=== PATIENT | male | born 1955 | race African-American/Black ===

== ENCOUNTER 2020-08-08 09:01 | Outpatient (CLI) | payer MEDICARE, MEDICAID | END 2020-08-08 09:02 | disposition home or self-care (01) | LOC: CSHWCC 09:01 | PROVIDERS: ATTEND Nurse Practitioner Family | DX: T81.89XD Other complications of procedures, not elsewhere classified, subsequent encounter (principal); E11.40 Type 2 diabetes mellitus with diabetic neuropathy, unspecified; E11.621 Type 2 diabetes mellitus with foot ulcer; E11.22 Type 2 diabetes mellitus with diabetic chronic kidney disease; I12.0 Hypertensive chronic kidney disease with stage 5 chronic kidney disease or end stage renal disease; I70.201 Unspecified atherosclerosis of native arteries of extremities, right leg; I87.2 Venous insufficiency (chronic) (peripheral); N18.6 End stage renal disease; N25.81 Secondary hyperparathyroidism of renal origin; T86.821 Skin graft (allograft) (autograft) failure; Z89.411 Acquired absence of right great toe; Z89.422 Acquired absence of other left toe(s); D63.1 Anemia in chronic kidney disease | CPT/HCPCS: 11042; 99213; G0463 ==

== ENCOUNTER 2020-08-29 09:12 | Outpatient (CLI) | payer MEDICARE, MEDICAID | END 2020-08-29 09:13 | disposition home or self-care (01) | LOC: CSHWCC 09:12 | PROVIDERS: ATTEND Nurse Practitioner Family | DX: T81.89XD Other complications of procedures, not elsewhere classified, subsequent encounter (principal); E11.621 Type 2 diabetes mellitus with foot ulcer; L97.509 Non-pressure chronic ulcer of other part of unspecified foot with unspecified severity; D64.9 Anemia, unspecified; E11.40 Type 2 diabetes mellitus with diabetic neuropathy, unspecified; I70.201 Unspecified atherosclerosis of native arteries of extremities, right leg; I12.0 Hypertensive chronic kidney disease with stage 5 chronic kidney disease or end stage renal disease; N18.6 End stage renal disease; N25.81 Secondary hyperparathyroidism of renal origin; T86.821 Skin graft (allograft) (autograft) failure; Z89.411 Acquired absence of right great toe; Z89.422 Acquired absence of other left toe(s) | CPT/HCPCS: 97139; G0463; 99213 ==

== ENCOUNTER 2020-09-19 09:11 | Outpatient (CLI) | payer MEDICARE, MEDICAID | END 2020-09-19 09:12 | disposition home or self-care (01) | LOC: CSHWCC 09:11 | PROVIDERS: ATTEND Nurse Practitioner Family | DX: T81.89XD Other complications of procedures, not elsewhere classified, subsequent encounter (principal); E11.621 Type 2 diabetes mellitus with foot ulcer; E11.40 Type 2 diabetes mellitus with diabetic neuropathy, unspecified; D64.9 Anemia, unspecified; I10 Essential (primary) hypertension; I70.201 Unspecified atherosclerosis of native arteries of extremities, right leg; I87.2 Venous insufficiency (chronic) (peripheral); I12.0 Hypertensive chronic kidney disease with stage 5 chronic kidney disease or end stage renal disease; N18.6 End stage renal disease; N25.81 Secondary hyperparathyroidism of renal origin; T86.821 Skin graft (allograft) (autograft) failure; Z89.411 Acquired absence of right great toe; Z89.422 Acquired absence of other left toe(s) | CPT/HCPCS: 97139; G0463; 99213 ==

== ENCOUNTER 2021-07-10 16:18 | Emergency (ER) | payer MEDICARE, MEDICAID | END 2021-07-10 18:15 | disposition home or self-care (01) | LOC: CSHERS 16:18 | DX: I97.620 Postprocedural hemorrhage of a circulatory system organ or structure following other procedure (principal); I10 Essential (primary) hypertension; E78.5 Hyperlipidemia, unspecified; E11.9 Type 2 diabetes mellitus without complications | CPT/HCPCS: 99283 ==

== ENCOUNTER 2021-07-11 12:49 | Emergency (ER) | payer MEDICARE, MEDICAID ==
[2021-07-11 14:21] LABS: Hemoglobin 11.5 g/dL (13.5-17.5)
[2021-07-11] MEDS ORDERED: Lidocaine 1% w/Epinephrine 1:100K 30 ML VIAL SC SCH (14:30)
== END 2021-07-11 16:08 | disposition home or self-care (01) ==
LOC: CSHERS 12:49
DX: I97.610 Postprocedural hemorrhage of a circulatory system organ or structure following a cardiac catheterization (principal); I10 Essential (primary) hypertension; E78.5 Hyperlipidemia, unspecified; E11.9 Type 2 diabetes mellitus without complications; Z99.2 Dependence on renal dialysis
CPT/HCPCS: 36415; 85014; 85018; 96372; 99283